=== PATIENT | female | born 1970 | race Caucasian/White ===

== ENCOUNTER 2017-09-15 23:22 | Emergency (ER) | payer OTHER ==
[~2017-09-15 23:22] MED LIST: ADV250/50 INH; CLAR-12 PO; DM H180L19 PO; HYDR473S4 PO; IBU800 PO; IBUP-1618 PO; LEV125 PO; LOR5 PO; MON10 PO; OTC COLD MEDS; PRE20 PO
[2017-09-15] MEDS ORDERED: [UNRECOGNIZED DRUG - CODE] PO (23:30)
--- NOTE | 2017-09-15 23:36 | ER Report ---
History and Physical Time Seen By MD: 23:30 Hx. of Stated Complaint: Pt was in "strongman" competition and smashed 45lb weight against right inner calf on Thursday. HPI/ROS CHIEF COMPLAINT: calf pain HISTORY OF PRESENT ILLNESS: This is a 47 year old female. She was in "strongman " competition on Thursday. Smashed 45lb weight against the right inner calf. Has bruising and pain. Seems to be worsening. No fevers or chills. Mild shortness of breath. No chest pain. No history of blood clots or bleeding problems. Allergies: Coded Allergies: No Known Drug Allergies (Verified , 09/15/17) Home Meds Reported Medications Thyroid,Pork (NATURE-THROID) 195 Mg Tablet, 195 MG PO QDAY 09/15/17 Discontinued Reported Medications Prednisone (Prednisone) 20 Mg Tab, 20 MG PO QDAY, #7 0 Refills 10/12/09 Levothyroxine Sodium (Synthroid/Levothroid) 0.125 Mg Tab, 0.125 MG PO QDAY, 0 Refills 10/12/09 Montelukast Sodium (Singulair) 10 Mg Tab, 10 MG PO QDAY, 0 Refills 10/12/09 Salmeterol Xinaf/Fluticasone (Advair 250/50 Diskus) 250 Mcg/50 Mcg Inh, 1 PUFF INH BID, 0 Refills 1 PUFF 10/12/09 Dm Hb/P-Ephed Hcl/Apap/Doxylam (Vicks Nyquil Liquid) 180 Ml Liquid, 180 ML PO PRN, 0 Refills 10/12/09 Ibuprofen (Motrin) 400 Mg Tablet, 400 MG PO PRN, #20 0 Refills 10/12/09 Reviewed Nurses Notes: Yes Hx Substance Use Disorder: No Hx Alcohol Use: Yes (RARE) Constitutional Vital Sign - Last 24 Hours 09/15/17 09/15/17 09/15/17 09/15/17 23:25 23:26 23:30 23:37 Temp 98.9 Pulse 70 72 Resp 18 B/P (MAP) 118/75 (89) 118/75 112/71 (85) Pulse Ox 94 94 O2 Delivery Room Air 09/15/17 09/15/17 09/16/17 09/16/17 23:52 23:57 00:57 01:00 Pulse 62 68 B/P (MAP) 89/64 (72) Pulse Ox 95 92 94 09/16/17 01:03 B/P (MAP) 108/61 (77) Physical Exam General Appearance: The patient is alert. No acute distress. Respiratory: Lungs are clear to auscultation. Cardiovascular: Regular rate and rhythm. No murmurs, gallops or rubs. Normal capillary refill. Normal pulses. Gastrointestinal: Abdomen is soft and non tender. Nondistended. Normal active bowel sounds. Neurological: Alert and oriented x3. No focal neurologic deficits. Skin: Warm and dry. Has bruising of the calf. No erythema, mild increased warmth. Musculoskeletal: Tender to palpation. No fluctuant pocket noted. Limits motion because of pain, but no weakness. DIFFERENTIAL DIAGNOSIS: After history and physical exam, differential diagnosis was considered for calf injury, possible blood clots versus hematoma, versus pain from muscle breakdown. Medical Decision Making Data Points Result Diagram: 09/15/17 2340 09/15/17 2340 Laboratory Hematology Test 09/15/17 23:40 Red Blood Count 7.29 M/uL (4.17-5.56) Mean Corpuscular Volume 61.9 fL (80.0-96.0) Mean Corpuscular Hemoglobin 20.5 pg (26.0-33.0) Mean Corpuscular Hemoglobin Concent 33.1 g/dL (32.0-36.0) Red Cell Distribution Width 16.2 % (11.5-14.5) Mean Platelet Volume 10.2 fL (7.2-11.1) Neutrophils (%) (Auto) 60.6 % (39.4-72.5) Lymphocytes (%) (Auto) 29.0 % (17.6-49.6) Monocytes (%) (Auto) 8.1 % (4.1-12.4) Eosinophils (%) (Auto) 0.9 % (0.4-6.7) Basophils (%) (Auto) 1.4 % (0.3-1.4) Nucleated RBC Relative Count (auto) 0.1 /100WBC Neutrophils # (Auto) 4.6 K/uL (2.0-7.4) Lymphocytes # (Auto) 2.2 K/uL (1.3-3.6) Monocytes # (Auto) 0.6 K/uL (0.3-1.0) Eosinophils # (Auto) 0.1 K/uL (0.0-0.5) Basophils # (Auto) 0.1 K/uL (0.0-0.1) Nucleated RBC Absolute Count (auto) 0.01 K/uL Peripheral Blood Smear Yes Y/N Prothrombin Time 15.0 seconds (12.0-14.4) Prothromb Time International Ratio 1.17 Activated Partial Thromboplast Time 28 seconds (23-35) Sodium Level 139 mmol/L (137-145) Potassium Level 3.8 mmol/L (3.5-5.0) Chloride Level 102 mmol/L (98-107) Carbon Dioxide Level 26 mmol/L (22-31) Blood Urea Nitrogen 21 mg/dl (7-18) Creatinine 1.50 mg/dl (0.52-1.04) Glomerular Filtration Rate Calc 37.6 Random Glucose 94 mg/dl (75-110) Calcium Level 9.7 mg/dl (8.4-10.2) Total Bilirubin 0.7 mg/dl (0.2-1.3) Aspartate Amino Transf (AST/SGOT) 46 U/L (0-35) Alanine Aminotransferase (ALT/SGPT) 50 U/L (0-56) Alkaline Phosphatase 38 U/L (0-126) Total Creatine Kinase 388 U/L (30-135) Total Protein 6.9 g/dl (6.3-8.2) Albumin 4.5 g/dl (3.5-5.0) Chemistry Test 09/15/17 23:40 White Blood Count 7.6 k/uL (4.5-11.0) Red Blood Count 7.29 M/uL (4.17-5.56) Hemoglobin 14.9 g/dL (12.0-16.0) Hematocrit 45.2 % (34.0-47.0) Mean Corpuscular Volume 61.9 fL (80.0-96.0) Mean Corpuscular Hemoglobin 20.5 pg (26.0-33.0) Mean Corpuscular Hemoglobin Concent 33.1 g/dL (32.0-36.0) Red Cell Distribution Width 16.2 % (11.5-14.5) Platelet Count 162 K/uL (150-450) Mean Platelet Volume 10.2 fL (7.2-11.1) Neutrophils (%) (Auto) 60.6 % (39.4-72.5) Lymphocytes (%) (Auto) 29.0 % (17.6-49.6) Monocytes (%) (Auto) 8.1 % (4.1-12.4) Eosinophils (%) (Auto) 0.9 % (0.4-6.7) Basophils (%) (Auto) 1.4 % (0.3-1.4) Nucleated RBC Relative Count (auto) 0.1 /100WBC Neutrophils # (Auto) 4.6 K/uL (2.0-7.4) Lymphocytes # (Auto) 2.2 K/uL (1.3-3.6) Monocytes # (Auto) 0.6 K/uL (0.3-1.0) Eosinophils # (Auto) 0.1 K/uL (0.0-0.5) Basophils # (Auto) 0.1 K/uL (0.0-0.1) Nucleated RBC Absolute Count (auto) 0.01 K/uL Peripheral Blood Smear Yes Y/N Prothrombin Time 15.0 seconds (12.0-14.4) Prothromb Time International Ratio 1.17 Activated Partial Thromboplast Time 28 seconds (23-35) Glomerular Filtration Rate Calc 37.6 Calcium Level 9.7 mg/dl (8.4-10.2) Total Bilirubin 0.7 mg/dl (0.2-1.3) Aspartate Amino Transf (AST/SGOT) 46 U/L (0-35) Alanine Aminotransferase (ALT/SGPT) 50 U/L (0-56) Alkaline Phosphatase 38 U/L (0-126) Total Creatine Kinase 388 U/L (30-135) Total Protein 6.9 g/dl (6.3-8.2) Albumin 4.5 g/dl (3.5-5.0) Coagulation Test 09/15/17 23:40 Prothrombin Time 15.0 seconds Prothromb Time International Ratio 1.17 Activated Partial Thromboplast Time 28 seconds EKG/Imaging Imaging VENOUS DOPP LOW RIGHT EXTREMIT HISTORY: Right calf pain with no injury. COMPARISON STUDIES: None. FINDINGS: Grayscale compression, duplex and color Doppler interrogation of the right lower extremity deep veins from common femoral vein to proximal calf was performed. The greater saphenous vein in the ipsilateral proximal thigh was evaluated using similar technique. Imaging of the contralateral common femoral vein was obtained for comparison. Right lower extremity: Common femoral vein: Normal. Deep femoral vein: Normal. Femoral vein: Normal. Popliteal vein: Normal. Visualized deep calf veins: Normal. Greater saphenous vein in the proximal thigh: Normal. Left common femoral vein: Normal. IMPRESSION: 1. There is no deep venous thrombosis of the right lower extremity. Report Dictated By: Elba Shannon at 09/16/2017 12:36 AM ED Course/Re-evaluation Clinical Indication for ER IV: IV Access ED Course Labs as noted. Elevation in CPK and creatinine due to injury as well as her protein intake and workouts. Offered to do some IV fluids, but she would prefer to orally rehydrate instead. Discussed signs to look for that may represent infection of the skin or infection of the hematoma that we suspect in the calf muscle area. Range of motion exercises discussed and recommended to avoid heavy physical activity until healed and pain gone. Decision to Disposition Date: Sep 16, 2017 Decision to Disposition Time: 00:55 Depart Departure Latest Vital Signs Vital Signs Date Time Temp Pulse Resp B/P (MAP) Pulse Ox O2 Delivery O2 Flow Rate FiO2 09/16/17 01:03 108/61 (77) 09/16/17 00:57 94 09/15/17 23:57 68 09/15/17 23:26 98.9 18 Room Air Impression: Primary Impression: Contusion of right calf Condition: Improved Disposition: HOME OR SELF-CARE Referrals: JESSICA ALVARADO DO (PCP) Patient Instructions: Contusion in Adults (ED), Hematoma (ED) Additional Instructions: Your creatinine phosphokinase levels are elevated and your kidney function shows increased creatinine. These changes are a combination of the body building and strength training you do as well as the breakdown of muscle proteins from recent injury. Increase fluid intake over the next week to help your kidneys clear these proteins as they can be dangerous to kidney function if they are extremely elevated. You will want to continue range of motion of the calf muscles, but do not overdo it. You may have a small collection of blood in the muscle called a hematoma. A heating pad and time will allow the body to reabsorb this blood and the pain will slowly resolve. We do not drain hematomas unless they get infected. Watch for severe pain, redness, hot skin, and fevers/chills. No sign of circulatory problems in the leg. Problem Qualifiers Primary Impression: Contusion of right calf Encounter type: initial encounter Qualified Codes: S80.11XA - Contusion of right lower leg, initial encounter MAICOL SERRANO MD Sep 15, 2017 23:36
[2017-09-16 00:06] LABS: INR 1.17; PLATELET COUNT, AUTOMATED 162 K/uL (150-450)
--- NOTE | 2017-09-16 00:41 | RADIOLOGY IMAGING REPORT ---
FACILITY: [facility] PATIENT NAME: Millie Elizondo : 1970 MR: [id number] V: [id number] EXAM DATE: ORDERING PHYSICIAN: MAICOL SERRANO TECHNOLOGIST: Location: [facility] - [place] Patient: Millie Elizondo : 1970 Visit/Account:[id number] Date of Sevice: 09/15/2017 VENOUS DOPP LOW RIGHT EXTREMIT HISTORY: Right calf pain with no injury. COMPARISON STUDIES: None. FINDINGS: Grayscale compression, duplex and color Doppler interrogation of the right lower extremity deep veins from common femoral vein to proximal calf was performed. The greater saphenous vein in the ipsilater al proximal thigh was evaluated using similar technique. Imaging of the contralateral common femoral vein was obtained for comparison. Right lower extremity: Common femoral vein: Normal. Deep femoral vein: Normal. Femoral vein: Normal. Popliteal vein: Normal. Visualized deep calf veins: Normal. Greater saphenous vein in the proximal thigh: Normal. Left common femoral vein: Normal. IMPRESSION: 1. There is no deep venous thrombosis of the right lower extremity. Report Dictated By: Elba Shannon at 09/16/2017 12:36 AM Report E-Signed By: Elba Shannon at 09/16/2017 12:38 AM WSN:[id number]
[2017-09-16 01:03] VITALS: BP 108/61
== END 2017-09-16 01:08 | disposition home or self-care (01) ==
LOC: ER 23:55
DX: S80.11XA Contusion of right lower leg, initial encounter (principal); W22.8XXA Striking against or struck by other objects, initial encounter; Y93.79 Activity, other specified sports and athletics
CPT/HCPCS: 82040; 82247; 82310; 82374; 82435; 82550; 82565; 82947; 84075; 84132; 84155; 84295; 84450; 84460; 84520; 85025; 85610; 85730

== ENCOUNTER → 2018-04-19 | Outpatient (CLI) | payer BC, OTHER ==
[~2018-04-19] MED LIST changes: +[UNRECOGNIZED DRUG - CODE] PO
--- NOTE | 2018-04-19 14:35 | RADIOLOGY IMAGING REPORT ---
FACILITY: [facility] - [place] PATIENT NAME: Millie Elizondo : 1970 MR: [id number] V: [id number] EXAM DATE: ORDERING PHYSICIAN: JESSICA ALVARADO TECHNOLOGIST: Location: [facility] - [place] Patient: Millie Elizondo : 1970 Visit/Account:[id number] Date of Sevice: 04/19/2018 Technique: KIDNEYS HISTORY: Elevated creatinine Procedure: There has been satisfactory grayscale, color and Doppler ultrasonic evaluation of the kidn eys and bladder. Comparison: None. Findings: The right kidney is normal in size, contour and echogenicity; it measures 10.1 cm x 5.1 cm x 5.5 cm in its sagittal, transverse and AP dimensions. No evidence of hydronephrosis. The left kidney is normal in size, contour and echogenicity; it measures 12 cm x 6.1 cm x 4.1 cm in its sagittal, transverse and AP dimensions. No evidence of hydronephrosis. Bladder: Distended. Bilateral ureteral jets are noted. The prevoid volume is 475 mL and the post vo id volume is 31 mL. Flow is identified in the aorta and IVC so far as visualized. The uterus measures 8.3 x 3.4 x 4.3 cm IMPRESSION: 1. Unremarkable renal ultrasound. Report Dictated By: Mike Sarmiento DO at 04/19/2018 2:28 PM Report E-Signed By: Mike Sarmiento DO at 04/19/2018 2:31 PM WSN:[id number]
== END ==
LOC: US 01:14
PROVIDERS: ATTEND Family Medicine
DX: N18.9 Chronic kidney disease, unspecified (principal)
CPT/HCPCS: 76705